=== PATIENT | male | born 1960 | race Caucasian/White ===

== ENCOUNTER 2018-06-28 17:12 | Emergency (ER) | payer MEDICARE, MEDICAID ==
[2018-06-28] MEDS ORDERED: HYDROcodone/Acetaminophen 10/325 mg Tablet ONE (18:05)
== END 2018-06-28 18:13 | disposition home or self-care (01) ==
LOC: ERS 17:12
DX: H66.92 Otitis media, unspecified, left ear (principal); H72.92 Unspecified perforation of tympanic membrane, left ear; I10 Essential (primary) hypertension; Z79.899 Other long term (current) drug therapy
CPT/HCPCS: 99283

== ENCOUNTER 2022-11-26 08:37 | Outpatient (CLI) | payer MEDICARE, MEDICAID | END 2022-11-26 08:38 | disposition home or self-care (01) | LOC: LABBT 08:37 | PROVIDERS: ATTEND Neurological Surgery | DX: Z01.810 Encounter for preprocedural cardiovascular examination (principal); M54.16 Radiculopathy, lumbar region | CPT/HCPCS: 93005; 93010 ==

== ENCOUNTER 2023-07-13 13:55 | Emergency (ER) | payer MEDICARE, MEDICAID ==
[2023-07-13] MEDS ORDERED: Ketorolac Tromethamine 30 MG/ML VIAL ONE (14:56)
[2023-07-13] MEDS ORDERED: LORazepam 2 MG/ML SYR.(CARPUJECT) ONE (14:57)
== END 2023-07-13 16:13 | disposition home or self-care (01) ==
LOC: ERS 13:55
DX: S90.31XA Contusion of right foot, initial encounter (principal); M48.05 Spinal stenosis, thoracolumbar region; I10 Essential (primary) hypertension; Z87.891 Personal history of nicotine dependence; Z79.899 Other long term (current) drug therapy; W18.41XA Slipping, tripping and stumbling without falling due to stepping on object, initial encounter
CPT/HCPCS: 72131; 73630; J2060; 96372; J1885

== ENCOUNTER 2023-09-13 13:53 | Emergency (ER) | payer MEDICARE, OTHER | END 2023-09-13 14:33 | disposition home or self-care (01) | LOC: ERS 13:53 | DX: S02.5XXA Fracture of tooth (traumatic), initial encounter for closed fracture (principal); K02.9 Dental caries, unspecified; K04.7 Periapical abscess without sinus; I10 Essential (primary) hypertension; Z87.891 Personal history of nicotine dependence; Z79.899 Other long term (current) drug therapy | CPT/HCPCS: 99282 ==